=== PATIENT | female | born 2005 | race Two or more races ===

== ENCOUNTER 2024-06-14 18:25 | Emergency (ER) | payer OTHER ==
[2024-06-14 18:39] VITALS: RESP 18; TEMP 98.8; BMI 17.8
[2024-06-14] MEDS ORDERED: FAMOTIDINE 20 MG TABLET ONE (20:16)
[2024-06-14] MEDS ORDERED: SUCRALFATE 1 GM TABLET (FP) ONE (20:17)
[2024-06-14] MEDS: SUCRALFATE 1 GM TABLET (FP) PO ONE (20:23)
[2024-06-14] MEDS: FAMOTIDINE 10 MG TABLET PO ONE (20:23)
[2024-06-14 21:06] LABS: PH,URINE 5.5 (5.0-8.0); URINE APPEARANCE CLEAR; URINE BILIRUBIN NEGATIVE (NEGATIVE); URINE COLOR YELLOW; URINE GLUCOSE (UA) NEGATIVE (NEGATIVE); URINE KETONE TRACE (NEGATIVE); URINE LEUK ESTERASE NEGATIVE (NEGATIVE); URINE NITRITE NEGATIVE (NEGATIVE); URINE PROTEIN NEGATIVE (NEGATIVE)
[2024-06-14 21:14] LABS: HCG,QUALITATIVE URINE Negative
[2024-06-14 21:27] VITALS: BP 116/63; PULSE 90
== END 2024-06-14 21:44 | disposition home or self-care (01) ==
LOC: JER 18:25
DX: K21.00 Gastro-esophageal reflux disease with esophagitis, without bleeding (principal); R07.2 Precordial pain; R06.02 Shortness of breath; R51.9 Headache, unspecified
CPT/HCPCS: 71046-TC-FY; 81003; 84703; 93005; 93010; 99285-25